=== PATIENT | female | born 1995 | race American Indian/Alaskan Native ===

== ENCOUNTER 2019-06-27 16:12 | Emergency (ER) | payer MEDICAID ==
--- NOTE | 2019-06-27 16:41 | Emergency Department Report ---
Blank Doc - Documentation Documentation: 23-year-old female that presents with SOB. Deneis any chest pain. Exam: normal lung sounds. This initial assessment/diagnostic orders/clinical plan/treatment(s) is/are subject to change based on patient's health status, clinical progression and re- assessment by fellow clinical providers in the ED. Further treatment and workup at subsequent clinical providers discretion. Patient/guardians urged not to elope from the ED as their condition may be serious if not clinically assessed and managed. Initial orders include: 1- Patient sent to [facility] for further evaluation and treatment 2- CXR 3- EKG
[2019-06-27 16:42] VITALS: BP 149/94
--- NOTE | 2019-06-27 17:03 | XRay Report ---
CHEST 2 VIEWS INDICATION: sob. COMPARISON: None. FINDINGS: Support devices: None. Heart: Within normal limits. Lungs/Pleura: No acute air space or interstitial disease. No significant pleural effusion. IMPRESSION: No acute findings. Signer Name: Stuart Borja MD Signed: 06/27/2019 4:58 PM Workstation Name: [id number]
[2019-06-27] MEDS ORDERED: ALBUTEROL 2.5 MG/3 ML NEBU IH ONE (17:24)
--- NOTE | 2019-06-27 17:30 | Emergency Department Report ---
ED General Adult HPI - General Chief complaint: High BP Stated complaint: SOB/HBP Time Seen by Provider: 06/27/19 16:39 Source: patient Mode of arrival: Ambulatory Limitations: No Limitations - History of Present Illness Initial comments: This pleasant 23-year-old female presents the emergency department chief complaint of intermittent shortness of breath of the past 2 weeks. She reports this is exacerbated by walking fast. She denies any known past medical history, current medication use or known allergies to medications. She also reports she has had elevated blood pressure since today. She denies a history of hypertension, hyperlipidemia, diabetes,'s tobacco use, family history of coronary artery disease. She denies cocaine or methamphetamine use. She does report marijuana use daily. She also reports she has been having some intermittent chest pain that she describes as dull. There are no aggravating or alleviating factors. - Related Data Allergies Allergy/AdvReac Type Severity Reaction Status Date / Time No Known Allergies Allergy Unverified 06/27/19 16:23 ED Review of Systems ROS: Stated complaint: SOB/HBP Other details as noted in HPI Comment: All other systems reviewed and negative Constitutional: denies: chills, fever Eyes: denies: eye pain, eye discharge, vision change ENT: denies: ear pain, throat pain Respiratory: see HPI, shortness of breath. denies: cough, wheezing Cardiovascular: chest pain. denies: palpitations Endocrine: no symptoms reported Gastrointestinal: denies: abdominal pain, nausea, diarrhea Genitourinary: denies: urgency, dysuria, discharge Musculoskeletal: denies: back pain, joint swelling, arthralgia Skin: denies: rash, lesions Neurological: denies: headache, weakness, paresthesias Psychiatric: denies: anxiety, depression Hematological/Lymphatic: denies: easy bleeding, easy bruising ED Past Medical Hx - Past Medical History Previous Medical History?: Yes Hx Hypertension: Yes - Surgical History Past Surgical History?: No - Social History Smoking Status: Never Smoker Substance Use Type: None ED Physical Exam - General Limitations: No Limitations General appearance: alert, in no apparent distress - Head Head exam: Present: atraumatic, normocephalic - Eye Eye exam: Present: normal appearance, PERRL, EOMI Pupils: Present: normal accommodation - ENT ENT exam: Present: normal exam, normal orophraynx, mucous membranes moist - Neck Neck exam: Present: normal inspection, full ROM. Absent: tenderness, meningismus - Respiratory Respiratory exam: Present: normal lung sounds bilaterally. Absent: respiratory distress, wheezes, rales, rhonchi, stridor, chest wall tenderness - Cardiovascular Cardiovascular Exam: Present: regular rate, normal rhythm, normal heart sounds. Absent: systolic murmur, diastolic murmur, rubs, gallop - GI/Abdominal GI/Abdominal exam: Present: soft, normal bowel sounds. Absent: distended, tenderness, guarding, rebound, rigid - Extremities Exam Extremities exam: Present: normal inspection, full ROM, normal capillary refill. Absent: tenderness, calf tenderness (no LE edema, negative alpesh sign bilaterally ) - Back Exam Back exam: Present: normal inspection, full ROM. Absent: tenderness, CVA tenderness (R), CVA tenderness (L) - Neurological Exam Neurological exam: Present: alert, oriented X3, normal gait - Psychiatric Psychiatric exam: Present: normal affect, normal mood - Skin Skin exam: Present: warm, dry, intact, normal color. Absent: rash ED Course Vital Signs 06/27/19 16:39 Temperature 98.1 F Pulse Rate 59 L Respiratory 18 Rate Blood Pressure 149/94 O2 Sat by Pulse 100 Oximetry ED Medical Decision Making - EKG Data -: EKG Interpreted by Ca EKG shows normal: sinus rhythm Rate: normal - EKG Data When compared to previous EKG there are: previous EKG unavailable Interpretation: normal EKG 06/27/19 17:58 Sinus rhythm rate of 62, no acute ST or T wave abnormalities, no STEMI, normal axis, normal intervals, no ectopy. - Radiology Data Radiology results: report reviewed XRay Report Signed Patient: GEORGE PAVON MR#: [id number] [birth year] : 1995 Acct:[id number] Age/Sex: 23 / F ADM Date: 06/27/19 Loc: ED Attending Dr: Ordering Physician: SAVANAH PHILIP NP Date of Service: 06/27/19 Procedure(s): XR chest routine 2V Accession Number(s): [id number] cc: SAVANAH PHILIP NP Fluoro Time In Minutes: CHEST 2 VIEWS INDICATION: sob. COMPARISON: None. FINDINGS: Support devices: None. Heart: Within normal limits. Lungs/Pleura: No acute air space or interstitial disease. No significant pleural effusion. IMPRESSION: No acute findings. Signer Name: Stuart Borja MD Signed: 06/27/2019 4:58 PM Workstation Name: [id number] - Medical Decision Making Patient is nontoxic in no acute distress. She reports intermittent shortness of breath over the past 2 weeks on exertion. Exam was unremarkable and patient had no clinical signs of DVT or PE. No tachycardia or hypoxia. Chest x-ray was unremarkable ruling out pneumonia or pneumothorax. No widening of the m ediastinum and the patient had normal equal radial pulses bilaterally with no tearing or ripping pain to the back making acute aortic dissection unlikely. EKG was unremarkable and the patient had no cardiac risk factors making ACS unlikely. She was educated about the risk of smoking could be causing her symptoms. Recommended outpatient follow-up with her primary care doctor return to emerge department any changing worsening symptoms. She verbalized understanding of the diagnosis, treatment plan and follow-up instructions and all of her questions were answered. - Differential Diagnosis PE, ACS, pneumonia, pneumothorax, pneumomediastinum Critical care attestation.: If time is entered above; I have spent that time in minutes in the direct care of this critically ill patient, excluding procedure time. ED Disposition Clinical Impression: Acute nonspecific chest pain with low risk of coronary artery disease, Elevated blood pressure reading Disposition: - TO HOME OR SELFCARE Is pt being admited?: No Condition: Stable Instructions: Chest Pain (ED) Referrals: PRIMARY CAREMD [Primary Care Provider] - 3-5 Days [facility] [Provider Group] - 3-5 Days Forms: Work/School Release Form(ED) Time of Disposition: 18:02
== END 2019-06-27 18:56 | disposition home or self-care (01) ==
LOC: ED 16:12
DX: I25.10 Atherosclerotic heart disease of native coronary artery without angina pectoris (principal); R03.0 Elevated blood-pressure reading, without diagnosis of hypertension
CPT/HCPCS: 71046; 93005; 93010; 94640